=== PATIENT | male | born 1980 ===

== ENCOUNTER 2019-02-22 13:31 | Inpatient (IN) | payer MEDICAID, MEDICARE, OTHER ==
--- NOTE | 2019-02-22 15:14 | HP ---
H&P (Free Text) History and Physical: History and Physical -- Critical Care Limitations in history/physical: intubated, sedated, delirium HPI: 38y M w/pmhx of Schizophrenia (noncompliant), ?Epilepsy disorder (not on tx ), Substance abuse history (on suboxone), Recently released from [facility] >1 month back; Patient initially presented to [facility] for agitation complaints. Family brought him in saying yesterday night he was restless and itching and picking at skin lesions. He took seroquel for sleep and then xanax for sleep. This mornign he was restless and agitated, brought to [facility] and was tried on multiple medications for sedation, psychosis but no sig improvement. According to notes and sign out, he had a CT brain which was negative for an acute pathology. He demonstrated no fever or elevated WBC or source of infection acutely. he was agitated and unable to have proper assessment and care and due to ongoing need for increasing sedatives ( antipsychotics including haloperidol, ziprasidone, ativan) he was intubated for encephalopathy and protection from harming self. Urine toxicology demonstrated amphetamine+. While there there is a question of seizure activity but according to managing Physician public relations assistant, once he arrived it seemed more like agitation and coming off sedation effect that actual seizures. He reported no further seizure activity then. Given need for ventilation, sedation, encephalopathy, he was transferred to higher level of care at [facility]. He is currently intubated, sedated on propofol at 70. no distress. on IV bolus from [facility]. Not on pressors. Given rocuronium en-route to hospital due to increasing restless. ROS: limited ROS due to change in mental status, intubated, sedated status PMHx: Schizophrenia (noncompliant), ?Epilepsy disorder (not on tx), Substance abuse history (on suboxone), Recently released from [facility] >1 month back PSHx: noncontributory Family History: mental illness Social History: Alcohol-none documented, Smoking-yes, Drug use-past substance abuse; Job-yes; family-lives with mother/father Allergies: NKDA Home Medications: Suboxone, seroquel Tele: NSR Vitals: Vital Signs Temp 96.2 F 02/22/19 14:40 Pulse 68 02/22/19 15:15 Resp 16 02/22/19 15:00 BP 118/78 02/22/19 15:15 Pulse Ox 100 02/22/19 15:15 Intake & Output 02/21/19 02/22/19 02/22/19 18:59 06:59 18:59 Output Total 250 Balance -250 Output: Elizondo 250 O2/Vent: Intubated, AC 30% Infusions: Propofol; NS bolus Current Medications: Acetaminophen (Tylenol Adult Liq*) 650 mg PO Q6H PRN PRN Reason: fever or pain Enoxaparin Sodium (Lovenox(*)) 40 mg SUBCUT Q24H [facility] Famotidine (Pepcid Tab*) 20 mg PO BID [facility] Propofol (Diprivan*) 100 mls @ 0 mls/hr IV .(Initial Rate) [facility]; Protocol Dexmedetomidine HCl 1,000 mcg/ (Sodium Chloride) 250 mls @ 0 mls/hr IV .( Initial Rate) [facility] Sodium Chloride (Ns 0.9% 1000 Ml) 1,000 mls @ 100 mls/hr IV PER RATE [facility] Thiamine HCl 100 mg/ Sodium (Chloride) 51 mls @ 102 mls/hr IV Q24H [facility] Physical Exam: Constitutional: intubated, sedated, no distress, no diaphoresis Head: normocephalic, atraumatic Eyes: no pallor, no icterus ENT: moist mucous membranes Neck: soft, supple, no jvd CVS: normal rate, regular, no murmur Resp: bilateral air entry, no rhales, no wheeze, no rhonchi, no acc muscle use Abdomen/GI: soft, nondistended, BS+ Ext/Msk: warm, pulses+, no edema Skin: intact, warm Neuro: sedated, pupila reactive, cough+ Labs: pending Imaging: pending CT brain 02/22 from [facility] - no acute process noted Assessment: 38y M w/pmhx of Schizophrenia (noncompliant), ?Epilepsy disorder ( not on tx), Substance abuse history (on suboxone), Recently released from [facility] >1 month back; Patient initially presented to [facility] for agitation complaints. Family brought him in saying yesterday night he was restless and itching and picking at skin lesions. He took seroquel for sleep and then xanax for sleep. This mornign he was restless and agitated, brought to [facility] and was tried on multiple medications for sedation, psychosis but no sig improvement. According to notes and sign out, he had a CT brain which was negative for an acute pathology. He demonstrated no fever or elevated WBC or source of infection acutely. he was agitated and unable to have proper assessment and care and due to ongoing need for increasing sedatives ( antipsychotics including haloperidol, ziprasidone, ativan) he was intubated for encephalopathy and protection from harming self. Urine toxicology demonstrated amphetamine+. While there there is a question of seizure activity but according to managing Physician public relations assistant, once he arrived it seemed more like agitation and coming off sedation effect that actual seizures. He reported no further seizure activity then. Given need for ventilation, sedation, encephalopathy, he was transferred to higher level of care at [facility]. -Acute Encephalopathy and agitation -Possible Drug intoxication vs withdrawal state -substance abuse -Acute respiratory failure, unspecified; intubated for mental status and airway protection -Rhabdomyolysis Plan: Neuro- -multifactorial encephalopathy ; previous history of substance abuse and now with amphet utox+, symptoms consistent prior to admission with use of amphetamines or even a withdrawal of opiates. -r/o infectious process; noted tylenol and salicylates negative -currently on propofol , sedated; will add precedex, attempt to wean down propofol slowly -start seroquel 25mg po daILY -PRN haldol if needed, prn ativan -start thiamine 100mg IV dialy -check b12 level, ammonia -if not waking on lower sedation in next 24hours or further evidence of seizures , will obtain neuro consult and EEG -neurochecks q2h -EKG for qtc -will need psych eval once extubated for eval of schizophrenia; patient not complying with treatment? not following up? -CT brain 02/22 at [facility] no acute pathology -asp prec -Delirium prec; avoid BDZ CVS- -BP stable, HR sinus -IVF NS 100cc/hr infusion -Maintain MAP>65 Resp- -intubated for airway protection and against self-harm -CXR 02/22 - ett above cornelius 1-2 cm; no infitlrate noted -on 30% fio2, sats 99% -Wean Fio2 to keep sat>92% -Bronchodilators PRN, Aspiration prec, Pulmonary Toilet -VAP bundle ID- afebrile. wbc pending. CXR without focal process. Hold off abx, no clear infectious etiology noted currently based on [facility] labs. GI- -NPO; OGT+ -GI prophylaxis as needed Renal- -Cr okay; BMP pending -IVF NS infusion -rhabdo+; check cpk and trend; likely may be from acute agitation than seizures ? will cont IVF hydration. try to decrease propofol infusion to prevent further injury -strict I/O, replete to keep K>4, Mg>2 -elizondo as indicated Heme- pending cbc Endo- Maintain BG<200, insulin protocol as needed; check hba1c, tsh, cortisol Musculsk- pressure ulcer prophylaxis. Bedrest. Wounds- none Nutrition- NPO DVT prophylaxis: SCD, enoxaparin sq GI prophylaxis: h2b bid Central Line: no Arterial Line: no Elizondo Cathetor: yes from [facility] Disposition: Admit to ICU; Patient requires Critical Care/ICU for encephalopathy, respiratory failure Expected LOS>2 midnights Patient Clinical Status: guarded Code Status: full code Total Critical Care time is 50 minutes, excluding procedures/teaching Murray Clayton MD Pourer Off (Electronically Signed)
[2019-02-22] MEDS ORDERED: Acetaminophen ADULT LIQ* 650 MG/20.3 ML UDC PO PRN (15:17)
[2019-02-22] MEDS: Thiamine IV* 100 MG in NS 0.9% 50 ML* 50 ML IV SCH (16:06)
[2019-02-22] MEDS: NS 0.9% 1000 ML** 1,000 ML IV SCH (16:08)
[2019-02-22 16:12] LABS: ABS Basophils 0.1 10^3/ul (0-0.2); ABS Monocytes 0.5 10^3/ul (0-0.8); ABS Neutrophils 5.3 10^3/ul (1.5-7.7); Eosinophil % 0.3 %; Hematocrit 40 % (42-52); Hemoglobin 14.5 g/dL (14.0-18.0); Lymphocyte % 25.4 %; Mean Corpuscular HGB Conc 36 g/dL (31-36); Mean Corpuscular Hemoglobin 33 pg (27-31); Mean Corpuscular Volume 91 fL (80-94); Mean Platelet Volume 9.5 fL (7.4-10.4); Nucleated Red Blood Cells % 0.4; Platelet Count 184 10^3/uL (150-450); Red Blood Count 4.42 10^6 /uL (4.18-5.48); Red Cell Distribution Width 13 % (10-15); White Blood Count 7.9 10^3/uL (3.5-10.8)
[2019-02-22 16:19] LABS: INR 1.13 (0.82-1.09)
[2019-02-22 16:29] LABS: Urine Appearance Clear; Urine Bacteria Absent (Absent); Urine Bilirubin Negative (Negative); Urine Blood 1+ (Negative); Urine Color Yellow; Urine Glucose Negative (Negative); Urine Ketones 1+ (Negative); Urine Nitrite Negative (Negative); Urine Protein Negative (Negative); Urine Red Blood Cell 3+(>10/hpf) (Absent); Urine Specific Gravity 1.011 (1.010-1.030); Urine Urobilinogen Negative (Negative); Urine White Blood Cell Trace(0-5/hpf) (Absent)
[2019-02-22 16:55] LABS: TSH (Thyroid Stimulating Horm) 0.83 mcIU/mL (0.34-5.60)
[2019-02-22 16:57] LABS: ALT 44 U/L (7-52); Alkaline Phosphatase 42 U/L (34-104); Anion Gap 3 mmol/L (2-11); BUN/Creatinine Ratio 11.9 (8-20); Blood Urea Nitrogen 8 mg/dL (6-24); CO2 Carbon Dioxide 24 mmol/L (22-32); Calcium 8.1 mg/dL (8.6-10.3); Chloride 111 mmol/L (101-111); EGFR African American 160.6 (>60); EGFR Non-African American 132.8 (>60); Glucose 93 mg/dL (70-100); Sodium 138 mmol/L (135-145)
[2019-02-22 17:07] LABS: Creatine Kinase 2800 U/L (10-223)
[2019-02-22] MEDS: Dexmedetomidine* 1,000 MCG in NS 0.9% 250 ML* 240 ML IV SCH (17:09)
[2019-02-22] MEDS: Chlorhexidine MOUTHWASH 0.12%* 15 ML UDC TOPICAL SCH ×3 (17:26→23:20)
[2019-02-22 18:39] LABS: Magnesium 1.1 mg/dL (1.9-2.7)
[2019-02-22 18:41] LABS: Potassium Redraw 2.5 mmol/L (3.5-5.0)
[2019-02-22] MEDS: KCL 10 MEQ/50 ML IV SCH ×4 (20:00→23:20)
[2019-02-22] MEDS ORDERED: QUEtiapine TAB* 25 MG PO SCH (20:00)
[2019-02-22] MEDS ORDERED: Potassium Chloride* LIQUID 20 MEQ/15 ML UDC PO ONE (20:00)
[2019-02-22] MEDS: Enoxaparin(*) 40 MG/0.4 ML SYR SUBCUT SCH (20:04)
[2019-02-22] MEDS: Famotidine TAB* 20 MG PO SCH (20:04)
[2019-02-22] MEDS: Propofol* 100 ML IV SCH (21:00)
[2019-02-23] MEDS ORDERED: Magnesium Sulfate IV* 3 GM in NS 0.9% 100 ML* 100 ML IVPB ONE (01:02)
[2019-02-23 01:27] LABS: BUN/Creatinine Ratio 11.9 (8-20); Calcium 8.7 mg/dL (8.6-10.3); EGFR African American 160.6 (>60); EGFR Non-African American 132.8 (>60); Potassium 4.8 mmol/L (3.5-5.0)
[2019-02-23] MEDS ORDERED: Magnesium Sulfate 2 GM IV* 0 GM/0 ML BAG ONE (01:32)
[2019-02-23] MEDS: NS 0.9% 1000 ML** 1,000 ML IV SCH (01:42)
[2019-02-23] MEDS: Propofol* 100 ML IV SCH ×5 (03:13→20:42)
[2019-02-23 04:50] LABS: Hematocrit 38 % (42-52); Hemoglobin 13.2 g/dL (14.0-18.0); Mean Corpuscular HGB Conc 35 g/dL (31-36); Mean Corpuscular Hemoglobin 32 pg (27-31); Mean Corpuscular Volume 92 fL (80-94); Mean Platelet Volume 8.7 fL (7.4-10.4); Platelet Count 147 10^3/uL (150-450); Red Blood Count 4.13 10^6 /uL (4.18-5.48); Red Cell Distribution Width 13 % (10-15); White Blood Count 4.8 10^3/uL (3.5-10.8)
[2019-02-23 05:14] LABS: BUN/Creatinine Ratio 10.7 (8-20); Calcium 8.5 mg/dL (8.6-10.3); EGFR Non-African American 116.6 (>60); Magnesium 2.9 mg/dL (1.9-2.7); Potassium 4.2 mmol/L (3.5-5.0)
[2019-02-23] MEDS: Chlorhexidine MOUTHWASH 0.12%* 15 ML UDC TOPICAL SCH ×5 (06:32→20:28)
[2019-02-23] MEDS: Dexmedetomidine* 1,000 MCG in NS 0.9% 250 ML* 240 ML IV SCH ×2 (06:32→17:20)
[2019-02-23] MEDS: Famotidine TAB* 20 MG PO SCH ×2 (08:14→20:27)
[2019-02-23] MEDS ORDERED: Midazolam* 1 MG/ML 2 ML VIAL (2 MG) ONE (10:12)
[2019-02-23] MEDS ORDERED: Midazolam* 1 MG/ML 5 ML VIAL (5 MG) IV SLOW PU ONE (10:15)
--- NOTE | 2019-02-23 10:40 | PN ---
Progress Note - Progress Note Date of Service: 02/23/19 Note: Progress Note -- Critical Care 24 hour events -remains intubated on propofol and precedex -afebrile overnight -bradycardic after precedex started, weaned more overnight -this morning placed on sedation vacation but very agitated, restless, not opening eyes, required reinitiation of sedation and versed -family at bedside Tele: NSR; sinus krishan 2/2 to meds Vitals: Vital Signs Temp 97 F 02/23/19 07:58 Pulse 62 02/23/19 09:01 Resp 20 02/23/19 09:00 BP 132/82 02/23/19 09:01 Pulse Ox 100 02/23/19 09:01 Intake & Output 02/22/19 02/23/19 02/23/19 18:59 06:59 18:59 Intake Total 2178 Output Total 350 900 115 Balance -350 1278 -115 Weight 74.117 kg 74 kg Intake: IV Fluids 1379 NS 1379 Medicated IV 769 mag 106 potassium 221 precedex 90 propofol 302 thiamine 50 NG Tube Irrigate Amount 30 Output: Elizondo 350 900 115 O2/Vent: Intubated, AC 30% Infusions: Propofol; precedex; NS infusion Current Medications: Acetaminophen (Tylenol Adult Liq*) 650 mg PO Q6H PRN PRN Reason: fever or pain Chlorhexidine Gluconate (Peridex Mouth Wash 0.12%*) 15 ml TOPICAL Q4H [facility] Last Admin: 02/23/19 07:22 Dose: 15 ml Enoxaparin Sodium (Lovenox(*)) 40 mg SUBCUT Q24H [facility] Last Admin: 02/22/19 20:04 Dose: 40 mg Famotidine (Pepcid Tab*) 20 mg PO BID [facility] Last Admin: 02/23/19 08:14 Dose: 20 mg Propofol (Diprivan*) 100 mls @ 31.129 mls/hr IV .(Initial Rate) [facility]; Protocol Last Admin: 02/23/19 09:28 Dose: 9.4 mls/hr Dexmedetomidine HCl 1,000 mcg/ (Sodium Chloride) 250 mls @ 18.52 mls/hr IV Q13H [facility] Last Admin: 02/23/19 06:32 Dose: Not Given Thiamine HCl 100 mg/ Sodium (Chloride) 51 mls @ 102 mls/hr IV Q24H [facility] Last Admin: 02/22/19 16:06 Dose: 102 mls/hr Sodium Chloride (Ns 0.45% 1000 Ml Bag*) 1,000 mls @ 75 mls/hr IV PER RATE [facility] Quetiapine Fumarate (Seroquel Tab*) 25 mg PO DAILY@1999 [facility] Last Admin: 02/22/19 20:04 Dose: 25 mg Physical Exam: Constitutional: intubated, sedated, no distress, no diaphoresis Head: normocephalic, atraumatic Eyes: no pallor, no icterus ENT: moist mucous membranes Neck: soft, supple, no jvd CVS: normal rate, regular, no murmur Resp: bilateral air entry, no rhales, no wheeze, no rhonchi, no acc muscle use Abdomen/GI: soft, nondistended, BS+ Ext/Msk: warm, pulses+, no edema Skin: intact, warm Neuro: sedated, pupils reactive, cough+ Labs: Laboratory Results - last 24 hr 02/22/19 02/22/19 02/22/19 15:55 15:55 15:55 WBC RBC Hgb Hct MCV MCH MCHC RDW Plt Count MPV Neut % (Auto) Lymph % (Auto) [place] % (Auto) Eos % (Auto) Baso % (Auto) Absolute Neuts (auto) Absolute Lymphs (auto) Absolute Monos (auto) Absolute Eos (auto) Absolute Basos (auto) Absolute Nucleated RBC Nucleated RBC % INR (Anticoag Therapy) Sodium Potassium Chloride Carbon Dioxide Anion Gap BUN Creatinine Est GFR ( Amer) Est GFR (Non-Af Amer) BUN/Creatinine Ratio Glucose Hemoglobin A1c 5.2 Calcium Magnesium Total Bilirubin AST ALT Alkaline Phosphatase Ammonia TNP Total Creatine Kinase Troponin I Total Protein Albumin Globulin Albumin/Globulin Ratio Vitamin B12 804 TSH 0.83 Cortisol Urine Color Urine Appearance Urine pH Ur Specific [place] Urine Protein Urine Ketones Urine Blood Urine Nitrate Urine Bilirubin Urine Urobilinogen Ur Leukocyte Esterase Urine WBC (Auto) Urine RBC (Auto) Urine Bacteria Urine Glucose 02/22/19 02/22/19 02/22/19 15:55 15:55 15:55 WBC 7.9 RBC 4.42 Hgb 14.5 Hct 40 L MCV 91 MCH 33 H MCHC 36 RDW 13 Plt Count 184 MPV 9.5 Neut % (Auto) 67.4 Lymph % (Auto) 25.4 [place] % (Auto) 5.8 Eos % (Auto) 0.3 Baso % (Auto) 1.1 Absolute Neuts (auto) 5.3 Absolute Lymphs (auto) 2.0 Absolute Monos (auto) 0.5 Absolute Eos (auto) 0.0 Absolute Basos (auto) 0.1 Absolute Nucleated RBC 0.0 Nucleated RBC % 0.4 INR (Anticoag Therapy) 1.13 H Sodium 138 Potassium TNP Chloride 111 Carbon Dioxide 24 Anion Gap 3 BUN 8 Creatinine 0.67 Est GFR ( Amer) 160.6 Est GFR (Non-Af Amer) 132.8 BUN/Creatinine Ratio 11.9 Glucose 93 Hemoglobin A1c Calcium 8.1 L Magnesium TNP Total Bilirubin 0.90 AST TNP ALT 44 Alkaline Phosphatase 42 Ammonia Total Creatine Kinase 2800 H Troponin I 0.00 Total Protein 6.0 L Albumin 4.0 Globulin 2.0 Albumin/Globulin Ratio 2.0 Vitamin B12 TSH Cortisol 4.10 Urine Color Urine Appearance Urine pH Ur Specific [place] Urine Protein Urine Ketones Urine Blood Urine Nitrate Urine Bilirubin Urine Urobilinogen Ur Leukocyte Esterase Urine WBC (Auto) Urine RBC (Auto) Urine Bacteria Urine Glucose 02/22/19 02/22/19 02/23/19 16:11 18:04 00:55 WBC RBC Hgb Hct MCV MCH MCHC RDW Plt Count MPV Neut % (Auto) Lymph % (Auto) [place] % (Auto) Eos % (Auto) Baso % (Auto) Absolute Neuts (auto) Absolute Lymphs (auto) Absolute Monos (auto) Absolute Eos (auto) Absolute Basos (auto) Absolute Nucleated RBC Nucleated RBC % INR (Anticoag Therapy) Sodium 143 Potassium 2.5 L* 4.8 Chloride 119 H Carbon Dioxide 23 Anion Gap 1 L BUN 8 Creatinine 0.67 Est GFR ( Amer) 160.6 Est GFR (Non-Af Amer) 132.8 BUN/Creatinine Ratio 11.9 Glucose 107 H Hemoglobin A1c Calcium 8.7 Magnesium 1.1 L Total Bilirubin AST 41 H ALT Alkaline Phosphatase Ammonia Total Creatine Kinase Troponin I Total Protein Albumin Globulin Albumin/Globulin Ratio Vitamin B12 TSH Cortisol Urine Color Yellow Urine Appearance Clear Urine pH 6.0 Ur Specific [place] 1.011 Urine Protein Negative Urine Ketones 1+ A Urine Blood 1+ A Urine Nitrate Negative Urine Bilirubin Negative Urine Urobilinogen Negative Ur Leukocyte Esterase Negative Urine WBC (Auto) Trace(0-5/hpf) Urine RBC (Auto) 3+(>10/hpf) A Urine Bacteria Absent Urine Glucose Negative 02/23/19 02/23/19 04:36 04:36 WBC 4.8 RBC 4.13 L Hgb 13.2 L Hct 38 L MCV 92 MCH 32 H MCHC 35 RDW 13 Plt Count 147 L MPV 8.7 Neut % (Auto) Lymph % (Auto) [place] % (Auto) Eos % (Auto) Baso % (Auto) Absolute Neuts (auto) Absolute Lymphs (auto) Absolute Monos (auto) Absolute Eos (auto) Absolute Basos (auto) Absolute Nucleated RBC Nucleated RBC % INR (Anticoag Therapy) Sodium 144 Potassium 4.2 Chloride 119 H Carbon Dioxide 24 Anion Gap 1 L BUN 8 Creatinine 0.75 Est GFR ( Amer) 141.0 Est GFR (Non-Af Amer) 116.6 BUN/Creatinine Ratio 10.7 Glucose 95 Hemoglobin A1c Calcium 8.5 L Magnesium 2.9 H Total Bilirubin AST ALT Alkaline Phosphatase Ammonia Total Creatine Kinase 1143 H Troponin I Total Protein Albumin Globulin Albumin/Globulin Ratio Vitamin B12 TSH Cortisol Urine Color Urine Appearance Urine pH Ur Specific [place] Urine Protein Urine Ketones Urine Blood Urine Nitrate Urine Bilirubin Urine Urobilinogen Ur Leukocyte Esterase Urine WBC (Auto) Urine RBC (Auto) Urine Bacteria Urine Glucose Imaging: pending CT brain 02/22 from [facility] - no acute process noted cxr 02/22 - ett above cornelius, no infiltrate/congestion Assessment: 38y M w/pmhx of Schizophrenia (noncompliant), ?Epilepsy disorder ( not on tx), Substance abuse history (on suboxone), [facility]; Patient initially presented to [facility] for agitation complaints. Family brought him in saying yesterday night he was restless and itching and picking at skin lesions. He took seroquel for sleep and then xanax for sleep. This mornign he was restless and agitated, brought to [facility] and was tried on multiple medications for sedation, psychosis but no sig improvement. According to notes and sign out, he had a CT brain which was negative for an acute pathology. He demonstrated no fever or elevated WBC or source of infection acutely. he was agitated and unable to have proper assessment and care and due to ongoing need for increasing sedatives ( antipsychotics including haloperidol, ziprasidone, ativan) he was intubated for encephalopathy and protection from harming self. Urine toxicology demonstrated amphetamine+. While there there is a question of seizure activity but according to managing Physician group fitness assistant department head, once he arrived it seemed more like agitation and coming off sedation effect that actual seizures. He reported no further seizure activity then. Given need for ventilation, sedation, encephalopathy, he was transferred to higher level of care at [facility]. -Acute Encephalopathy and agitation -Possible Drug intoxication vs withdrawal state -substance abuse -Acute respiratory failure, unspecified; intubated for mental status and airway protection -Rhabdomyolysis Plan: Neuro- -multifactorial encephalopathy ; previous history of substance abuse and now with amphet utox+, symptoms consistent prior to admission with use of amphetamines or even a withdrawal of opiates. -r/o infectious process -noted tylenol and salicylates negative on utox but +amphetamines -? of progression of schizophrenia with mood disorder also? -currently on propofol, low dose precedex; on sedation vacation did not tolerated -started seroquel 25mg po daily, increase to BID today -will keep BDZ prn only as this would just increase delirium; unclear role for psych till extubated and able to assess mental status -cont thiamine 100mg IV dialy -check ammonia tomorrow -neurochecks q2h -CT brain 02/22 at [facility] no acute pathology -asp prec -Delirium prec; avoid BDZ unless indicated CVS- -BP stable; HR sinus krishan due to sedation but perfusion adequate -IVF -Maintain MAP>65 Resp- -intubated for airway protection and against self-harm -CXR 02/22 - ett above cornelius 1-2 cm; no infitlrate noted -on 30% fio2, sats 99% -Wean Fio2 to keep sat>92% -Bronchodilators PRN, Aspiration prec, Pulmonary Toilet -VAP bundle ID- afebrile. wbc normal. CXR without focal process. Hold off abx GI- -NPO; OGT+ -start TF today, jevity 1.5 @ 10cc/hr to goal of 30, reassess tomorrow -GI prophylaxis as needed Renal- -Cr okay; replete K due to 2.5 level overnight with Po and IV -Na rising and Chloride high; change NS to 1/2 NS 75cc/hr -CPK downtrending, likley from agitation -strict I/O, replete to keep K>4, Mg>2 -elizondo as indicated Heme- -hg stable -plt stable -DVT proph with SCD and chemical Endo- Maintain BG<200, insulin protocol as needed Musculsk- pressure ulcer prophylaxis. Bedrest. Wounds- none Nutrition- start TF jevity 1.5 DVT prophylaxis: SCD, enoxaparin sq GI prophylaxis: h2b bid Central Line: no Arterial Line: no Elizondo Cathetor: yes from [facility] Disposition: ICU for respiratory failure, encephalopathy Patient Clinical Status: guarded Code Status: full code Total Critical Care time is 45 minutes, excluding procedures/teaching Murray Clayton MD Accounting Intern (Electronically Signed)
[2019-02-23] MEDS: QUEtiapine TAB* 25 MG PO SCH ×2 (11:43→20:29)
[2019-02-23] MEDS: NS 0.45% 1000 ML BAG* 1,000 ML IV SCH (11:54)
[2019-02-23] MEDS ORDERED: Dexmedetomidine* 1,000 MCG in NS 0.9% 250 ML* 240 ML IV SCH (14:00)
[2019-02-23] MEDS: Thiamine IV* 100 MG in NS 0.9% 50 ML* 50 ML IV SCH (15:31)
[2019-02-23] MEDS: Enoxaparin(*) 40 MG/0.4 ML SYR SUBCUT SCH (20:27)
[2019-02-24] MEDS: Propofol* 100 ML IV SCH ×8 (00:17→20:11)
[2019-02-24] MEDS: Chlorhexidine MOUTHWASH 0.12%* 15 ML UDC TOPICAL SCH ×6 (01:02→20:38)
[2019-02-24] MEDS: NS 0.45% 1000 ML BAG* 1,000 ML IV SCH ×2 (01:05→14:39)
[2019-02-24 04:53] LABS: Hematocrit 38 % (42-52); Hemoglobin 12.8 g/dL (14.0-18.0); Mean Corpuscular HGB Conc 34 g/dL (31-36); Mean Corpuscular Hemoglobin 31 pg (27-31); Mean Corpuscular Volume 92 fL (80-94); Mean Platelet Volume 8.6 fL (7.4-10.4); Platelet Count 162 10^3/uL (150-450); Red Blood Count 4.12 10^6 /uL (4.18-5.48); Red Cell Distribution Width 13 % (10-15); White Blood Count 7.3 10^3/uL (3.5-10.8)
[2019-02-24 05:05] LABS: Calcium 8.2 mg/dL (8.6-10.3); EGFR African American 145.5 (>60); EGFR Non-African American 120.2 (>60); Magnesium 1.8 mg/dL (1.9-2.7); Potassium 3.5 mmol/L (3.5-5.0)
[2019-02-24] MEDS: QUEtiapine TAB* 25 MG PO SCH ×2 (09:38→20:38)
[2019-02-24] MEDS: Famotidine TAB* 20 MG PO SCH ×2 (09:39→20:38)
[2019-02-24] MEDS: Dexmedetomidine* 1,000 MCG in NS 0.9% 250 ML* 240 ML IV SCH ×2 (11:09→17:22)
--- NOTE | 2019-02-24 17:07 | PN ---
Date of Service: 02/24/19 Critical Care Services: remains on ventilator and is very agitated when off propofol. Vital Signs: Temp Pulse Resp BP SpO2 FiO2 98.4 F 75 18 121/72 97 25 Physical Exam: Gen: Unresponsive (on proofol) HEENT: Pupils misposition and responsive. No facial asymmetry Lungs:Clear Cardiac: reg rhtyhm. No murmurs Extremities:No cyanosis or edema. Fluid Balance (Past 24 Hours): 02/23/19 02/24/19 06:59 06:59 Intake Total 2178 2914.2 Output Total 1250 1480 Balance 928 1434.2 Weight 163 lb 2.273 oz 164 lb 0.383 oz Intake: IV Fluids 1379 1811 NS 1379 1811 Medicated IV 769 630.2 mag 106 potassium 221 precedex 90 48.2 propofol 302 532 thiamine 50 50 Tube Feeding 353 NG Tube Irrigate Amount 30 120 Output: Fritz 1250 1480 Labs: 02/24/19 02/24/19 02/24/19 04:40 04:40 04:40 WBC 7.3 RBC 4.12 L Hgb 12.8 L Hct 38 L MCV 92 MCH 31 MCHC 34 RDW 13 Plt Count 162 MPV 8.6 Sodium 144 Potassium 3.5 Chloride 117 H Carbon Dioxide 24 Anion Gap 3 BUN 8 Creatinine 0.73 Glucose 105 H Calcium 8.2 L Magnesium 1.8 L Ammonia 59 H Total Creatine Kinase 882 H Studies: EEG: No seizure activity. Nutrition: Tube feedings Impression: 1. Drug overdose (most likely amphetamines) in a patient with undelying schizophrenia. 2. Rhabdomyolysis - resolving Plan: Continue supportive care and take off propofol daily to assess mentation. Family present at bedside and aware of the current situation. Critical Care Time: 40 minutes (including time to evaluate mental status while off propofol).
[2019-02-24] MEDS: Thiamine IV* 100 MG in NS 0.9% 50 ML* 50 ML IV SCH (17:26)
[2019-02-24] MEDS: Enoxaparin(*) 40 MG/0.4 ML SYR SUBCUT SCH (20:38)
--- NOTE | 2019-02-24 22:20 | EEG ---
ELECTROENCEPHALOGRAPHY: DATE OF SERVICE: 02/24/19 - ROOM #ICU-12 DATE READ: 02/24/19 ORDERED BY: Dr. Agapito Bowen. DURATION: 10:05 to 10:51 INDICATION: Mr. Tung Hudson is a 38-year-old man with a history of polysubstance abuse, who presented with increased confusion and agitation. The patient was intubated and sedated to minimize any agitation. This EEG was obtained to evaluate for nonconvulsive status epilepticus. MEDICATIONS: 1. Precedex. 2. Pepcid. 3. Seroquel. 4. Vitamin B1. 5. Lovenox. 6. Propofol. CLINICAL STATE: Encephalopathy. REPORT: The most prominent features of this recording were polymorphic mixed faster frequency of 2-15 Hz alpha, theta, delta, and beta frequency. There were intermittent paroxysms of low voltage suppression of the background lasting 1 to 2 seconds. At the end of the recording, there was reactivity, and the patient was moving around throughout the study. Otherwise, the background lacked organization or clearly defined anterior or posterior voltage and frequency gradients. There was no discernible posterior dominant rhythm. There was emergence of some faster frequency with verbal and tactile stimulation. Hyperventilation and photic stimulation were not performed. There was no evidence of epileptiform discharges or electrographic seizures. CLINICAL IMPRESSION: This is an abnormal EEG due to the presence of diffuse, mixed frequency slowing, beta frequency, and occasional paroxysms of low voltage suppression. These findings are suggestive of a nonspecific moderate diffuse encephalopathy which can be seen in toxic metabolic disturbance, or due to medication effect. [id number]/CPS #: [id number] [facility]
[2019-02-25] MEDS: Chlorhexidine MOUTHWASH 0.12%* 15 ML UDC TOPICAL SCH ×3 (00:35→08:32)
[2019-02-25] MEDS: NS 0.45% 1000 ML BAG* 1,000 ML IV SCH ×2 (04:00→19:58)
[2019-02-25] MEDS: Propofol* 100 ML IV SCH ×2 (04:00→07:41)
[2019-02-25 04:27] LABS: Hematocrit 37 % (42-52); Hemoglobin 12.8 g/dL (14.0-18.0); Mean Corpuscular HGB Conc 34 g/dL (31-36); Mean Corpuscular Hemoglobin 31 pg (27-31); Mean Corpuscular Volume 91 fL (80-94); Platelet Count 153 10^3/uL (150-450); Red Blood Count 4.06 10^6 /uL (4.18-5.48); Red Cell Distribution Width 13 % (10-15); White Blood Count 9.4 10^3/uL (3.5-10.8)
[2019-02-25 04:42] LABS: Calcium 7.8 mg/dL (8.6-10.3); EGFR Non-African American 116.6 (>60); Magnesium 1.6 mg/dL (1.9-2.7); Potassium 3.3 mmol/L (3.5-5.0)
[2019-02-25] MEDS: QUEtiapine TAB* 25 MG PO SCH ×2 (08:32→20:27)
[2019-02-25] MEDS: Famotidine TAB* 20 MG PO SCH (08:32)
[2019-02-25] MEDS ORDERED: LORazepam INJ* 2 MG/ML 1 ML VIAL IV PUSH PRN (11:13)
[2019-02-25] MEDS ORDERED: Lorazepam PYXIS KEY PRN (11:13)
[2019-02-25] MEDS ORDERED: Potassium Chloride* LIQUID 20 MEQ/15 ML UDC PO ONE (12:26)
[2019-02-25] MEDS ORDERED: Magnesium Sulfate 2 GM IV* 2 GM/50 ML BAG IVPB ONE (12:27)
--- NOTE | 2019-02-25 14:01 | CONSULT ---
Consult Consult: Consult for Medical Decision Making Capacity S: Psychiatry is asked to evaluate capacity in this 38 y.o. single, white male with a history of epilepsy, extensive behavioral and criminal justice problems and substance abuse transferred to the [facility] ICU from [facility], where he had required intubation due to agitation, confusion and inability to protect his airway. The patient extubated himself and was immediately insisting on leaving the hospital AMA. Hospitalist attending Beronica Tidwell is concerned about his hemodynamic stability and risk for falls and further seizure, including status epilepticus, if he was to leave without further treatment. On exam the patient is accompanied in the ICU room by his mother, Isabelle Heller, stepfather Kaelb Heller and girlfriend Lauren Medina. They note that he was at his baseline until just prior to going to [facility], when he started complaining of not feeling right. According to them he had a seizure before arriving to the referring hospital. 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 I tried to have a conversation with the patient, who goes by CARLOS, but he could not have a reciprocal interaction. He seems confused and is not able to speak properly, partially from having just auto-extubated less than 2 hours prior to examination. He's not able to express his diagnostic situation or what the risks would be if he left. O: middle-aged white male who is balding; several tattoos, dressed in a patient gown with telemetry leads annealed to his chest; limited grooming, cooperative but slightly argumentative; anxious mood with a labile affect; denies SI or HI; insight and judgment poor given insistence on leaving; awake and alert; limited orientation to place time and situation A/P: Capacity: During our interaction, Mr. Hudson failed to demonstrate a reasonable understanding of his illness, the recommended treatment or the associated risks of refusing said treatment. In my judgment, he lacks the capacity to make an informed decision about staying in the hospital for continued diagnostic workup and stabilization. Capacity is subject to change in these situations and psychiatry can be re-consulted in the event of any significant changes in his presentation/situation. I have discussed my opinion with the patient, his family, unit staff and attending hosptialist, Beronica Tidwell. Thank you for the consult.
[2019-02-25] MEDS: Dexmedetomidine* 1,000 MCG in NS 0.9% 250 ML* 240 ML IV SCH (15:10)
--- NOTE | 2019-02-25 15:11 | PN ---
Subjective Date of Service: 02/25/19 Interval History: Patient seen and examined. Remains confused about his situation, security called to bedside, as patient was trying to leave AMA. He is not clear in his answers, his girlfriend is at the bedside. Objective Active Medications: Enoxaparin Sodium (Lovenox(*)) 40 mg SUBCUT Q24H [facility] Last Admin: 02/24/19 20:38 Dose: 40 mg Famotidine (Pepcid Tab*) 20 mg PO BID [facility] Last Admin: 02/25/19 08:32 Dose: 20 mg Sodium Chloride (Ns 0.45% 1000 Ml Bag*) 1,000 mls @ 75 mls/hr IV PER RATE [facility] Last Admin: 02/25/19 04:00 Dose: 75 mls/hr Dexmedetomidine HCl 1,000 mcg/ (Sodium Chloride) 250 mls @ 5.58 mls/hr IV Q24H [facility]; Protocol Last Admin: 02/24/19 17:22 Dose: 5.58 mls/hr Lorazepam (Ativan Inj*) 1 mg IV PUSH Q4H PRN PRN Reason: ANXIETY Miscellaneous (Ativan Pyxis Scruggs) 1 ea N/A .ATIVAN IV SCRUGGS PRN PRN Reason: PYXIS SCRUGGS Quetiapine Fumarate (Seroquel Tab*) 25 mg PO BID [facility] Last Admin: 02/25/19 08:32 Dose: 25 mg Vital Signs - 8 hr 02/25/19 02/25/19 02/25/19 07:30 08:00 08:30 Temperature 98.7 F Pulse Rate 57 57 57 Respiratory 17 Rate Blood Pressure 114/68 121/72 117/69 (mmHg) O2 Sat by Pulse 98 98 97 Oximetry 02/25/19 02/25/19 02/25/19 09:00 09:30 10:00 Temperature Pulse Rate 56 56 56 Respiratory 17 16 Rate Blood Pressure 116/71 119/71 113/67 (mmHg) O2 Sat by Pulse 98 97 96 Oximetry 02/25/19 02/25/19 02/25/19 10:30 11:00 11:01 Temperature Pulse Rate 73 67 68 Respiratory 24 18 Rate Blood Pressure 142/80 132/78 (mmHg) O2 Sat by Pulse 100 96 97 Oximetry 02/25/19 02/25/19 02/25/19 11:30 12:00 13:00 Temperature 97.5 F Pulse Rate 66 68 78 Respiratory 31 15 21 Rate Blood Pressure 127/77 153/99 (mmHg) O2 Sat by Pulse 99 99 99 Oximetry 02/25/19 02/25/19 02/25/19 13:51 14:00 14:27 Temperature Pulse Rate 86 67 72 Respiratory 28 16 13 Rate Blood Pressure 147/92 125/77 (mmHg) O2 Sat by Pulse 98 98 95 Oximetry 02/25/19 15:00 Temperature Pulse Rate 75 Respiratory 19 Rate Blood Pressure 140/78 (mmHg) O2 Sat by Pulse 92 Oximetry Oxygen Devices in Use Now: None Appearance: alert, NAD Eyes: No Scleral Icterus, PERRLA Neck: NL Appearance and Movements; NL JVP Respiratory: Symmetrical Chest Expansion and Respiratory Effort, Clear to Auscultation Cardiovascular: NL Sounds; No Murmurs; No JVD Extremities: No Edema Neurological: - - alert to person and place Nutrition: Taking PO's Result Diagrams: 02/25/19 04:18 02/25/19 04:18 Microbiology and Other Data: Microbiology 02/22/19 16:11 Urine Culture - Final Urine No Growth (<1,000 CFU/mL) 02/22/19 15:11 Nasal Screen MRSA (PCR) - Final Nasal Mrsa Not Detected Diagnostic Imaging: Patient Name: STEVE MUHAMMAD Medical Record#: [id number] Ordering Physician: Murray Clayton MD Acct.#: [id number] : 1980 Age: 38 Sex: M Location: [facility] Exam Date: 02/22/19 1509 ADM Status: ADM IN Order Information: CHEST AP OR PORT Accession Number: [id number] CPT: 05086 Indication: Evaluate endotracheal tube. Comparison: February 22, 2019 1027 hours Technique: Upright AP 1520 hours. Report: Endotracheal tube tip 2.8 cm above the Vicky. Nasogastric tube tip at level of the gastric cardia. Clear lungs and pleural spaces. Negative for pneumothorax. The heart, pulmonary vasculature, and mediastinal contours are unremarkable. IMPRESSION: #. Acceptable position of the endotracheal tube. #. The nasogastric tube should be advanced. Assess/Plan/Problems-Billing Assessment: This is a 38 year old male that was transferred from [facility] with reported seizures, drug ingestion and encephalopahty of unclear etiology. - Patient Problems (1) Encephalopathy acute Code(s): G93.40 - ENCEPHALOPATHY, UNSPECIFIED SNOMED Code(s): 31806349 Comment: - Mentation waxing and waning with impulsive behavior and trying to leave AMA shortly after extubation at approx 1030 am today - requested psychiatry consult for capacity - etiology unclear, drugs? schizophrenia? untreated seizures? - Repeat EEG now that patient is off sedation, pending consult withe neurology (2) Epilepsy Code(s): G40.909 - EPILEPSY, UNSP, NOT INTRACTABLE, WITHOUT STATUS EPILEPTICUS SNOMED Code(s): 99333027 Comment: - as above repeat EEG off precedex and propofol, pending neuro (3) Rhabdomyolysis Code(s): M62.82 - RHABDOMYOLYSIS SNOMED Code(s): 592108959 Comment: - in presence of possible amphetamine overdose - Continue IVF and monitor renal function (4) Schizophrenia Code(s): F20.9 - SCHIZOPHRENIA, UNSPECIFIED SNOMED Code(s): 03650765 Comment: - Appreciate recommendatiosn by psychiatry (5) Substance abuse Current Visit: Yes Status: Acute Code(s): F19.10 - OTHER PSYCHOACTIVE SUBSTANCE ABUSE, UNCOMPLICATED SNOMED Code(s): 74526806 Status and Disposition: Inpatient.
[2019-02-25] MEDS ORDERED: Morphine 4 MG/ML VIAL (1 ml) 4 MG/ML VIAL IV PRN (16:01)
[2019-02-25] MEDS: Enoxaparin(*) 40 MG/0.4 ML SYR SUBCUT SCH (20:27)
[2019-02-25] MEDS: Buprenorp/Nalox 8-2 MG SL TAB PO SCH (20:48)
[2019-02-26 04:18] LABS: Hematocrit 37 % (42-52); Hemoglobin 12.6 g/dL (14.0-18.0); Mean Corpuscular HGB Conc 34 g/dL (31-36); Mean Corpuscular Hemoglobin 31 pg (27-31); Mean Corpuscular Volume 91 fL (80-94); Mean Platelet Volume 8.4 fL (7.4-10.4); Platelet Count 153 10^3/uL (150-450); Red Blood Count 4.02 10^6 /uL (4.18-5.48); Red Cell Distribution Width 13 % (10-15); White Blood Count 7.2 10^3/uL (3.5-10.8)
[2019-02-26 04:43] LABS: BUN/Creatinine Ratio 7.4 (8-20); Calcium 8.5 mg/dL (8.6-10.3); EGFR African American 157.9 (>60); EGFR Non-African American 130.5 (>60); Magnesium 1.9 mg/dL (1.9-2.7); Potassium 3.9 mmol/L (3.5-5.0)
[2019-02-26] MEDS: Buprenorp/Nalox 8-2 MG SL TAB PO SCH ×2 (09:47→13:38)
[2019-02-26] MEDS: QUEtiapine TAB* 25 MG PO SCH ×2 (09:48→09:49)
--- NOTE | 2019-02-26 10:14 | EEG ---
ELECTROENCEPHALOGRAPHY: DATE OF SERVICE: 02/25/19 - ROOM #441 DATE READ: 02/26/19 ORDERED BY: Beronica Tidwell NP. CLINICAL PROBLEM: Mr. Hudson is a 38-year-old man who was admitted to ICU for possible seizure-like activity. This EEG was requested to evaluate for epileptiform abnormalities or electrographic seizures. CLINICAL STATE: Awake and drowsy. REPORT: The waking background had some retained organization and discernible anterior/posterior voltage and frequency gradients. There is a slow poorly sustained posterior-dominant rhythm of 8 Hz. The drowsy background consisted of diffuse, medium to high amplitude, polymorphic, 2-5 Hz theta and delta range slowing. At times, the delta slowing became sharply contoured and took on a triphasic EEG morphology. There was emergence of some fast frequency when alerted. There were rare spike in slow wave epileptiform discharges in the left temporal region, maximum at T3 and T5. These were predominantly present during drowsy state. Photic stimulation and hyperventilation were not performed. A single-electrode EKG showed a normal sinus rhythm at a rate of 75 beats per minute. CLINICAL IMPRESSION: This is an abnormal awake and drowsy EEG due to the presence of rare left temporal epileptiform discharges, diffuse slowing of the background and triphasic waves. These findings are suggestive of mild-moderate diffuse encephalopathy with superimposed increased epileptiform potentials emanating from the left temporal region. Triphasic waves are typically seen in metabolic disturbances such as hyperammonemia or hyperuremia. [id number]/[facility] #: [id number] [facility]
[2019-02-26] MEDS ORDERED: levETIRAcetam TAB* 500 MG PO ONE (10:21)
[2019-02-26 12:31] VITALS: BP 144/77
--- NOTE | 2019-02-26 13:32 | CONS ---
NEUROLOGY CONSULTATION: DATE OF CONSULT: 02/26/19 CONSULTING PROVIDER: Beronica Tidwell NP. REASON FOR CONSULT: Seizure. CHIEF COMPLAINT: Seizures. HISTORY OF PRESENT ILLNESS: Mr. Hudson is a 38-year-old right handed man who has a history of epilepsy since 5 years of age who presented to [facility] on 02/22/19 for agitation and restlessness. It was felt that the patient may have missed his antipsychotic therapy and have an acute psychosis. He was intubated for airway protection and due to encephalopathy. The urine toxicology screen showed positive for amphetamine. He was admitted to the ICU and eventually extubated on 02/25/19. Neurology was consulted to evaluate the patient's history of seizure disorder. The patient is a poor historian, but is alert and oriented enough to provide some history. He stated that he has had seizures since he was 5 years of age. He reported taking Depakote and phenobarbital at some point. He was incarcerated for the past 2 years and was released in August 2018. During his incarceration, the patient was taking the seizure medication, but he does not recall the name. Since he was released he has not taken any medications for seizures. He reports having multiple seizures at least 2 to 3 times a year. He had 1 seizure during the 2 years that he was incarcerated. He is unable to describe the seizures. Family is not at bedside. The patient does report losing consciousness and initially waking up at the hospital. The patient denied any recent history of psychosis. He denied any history of headaches, visual disturbance, weakness or numbness. He is requesting to go home. The patient was started on Suboxone and Seroquel during this hospitalization. He was evaluated by Psychiatry, Dr. Matias, who saw that the patient did not have the capacity to make any clinical or medical decisions. Seizure risk factors: The patient denied any history of meningitis or encephalitis. He denies any head injury. He has no family history of epilepsy. He denied any history of febrile seizures. He has no history of brain or spinal cord surgeries. He was born as full term, normal vaginal delivery without any complications. The patient has not had any intracranial imaging since the hospitalization. He had an EEG that showed diffuse slowing with increased rare epileptogenic potentials in the left temporal region. These findings are consistent with encephalopathy and possible lowering of seizure threshold for seizures. The patient had a CT head without contrast at [place], which was reported to show no acute pathology. I did not review these with extra images or the results and this was dictated according to the provider's note. PAST MEDICAL HISTORY: Schizophrenia, epilepsy, and substance abuse. HOME MEDICATIONS: Reported Suboxone and Seroquel. ALLERGIES: No known drug allergies. FAMILY HISTORY: No family history of stroke or seizures. He does have a family history of mental illness. SOCIAL HISTORY: He denied any alcohol use. He does smoke tobacco and marijuana. He is employed at a factory. REVIEW OF SYSTEMS: A 14-point review of systems was obtained and otherwise negative except for what is mentioned in the HPI. PHYSICAL EXAM: Vitals: Temperature of 98.4, heart rate of 73, respiratory rate of 17, oxygen saturation is 99% on room air, and blood pressure 133/89. General: Ill-appearing, disheveled man in no acute distress. Head: Normocephalic and atraumatic. Eyes: Conjunctivae/corneas are clear. Neck is supple and symmetrical with no carotid bruits. No lymphadenopathy. Lungs are clear to auscultation bilaterally. Cardiovascular: Regular rate and rhythm with normal S1 and S2. Extremities: Normal range of motion with no cyanosis. Skin: No skin lesions or lacerations. Psych: Affect is broad and normal mood. Neurological Examination: Mental status awake, alert, and oriented to person, place, time, and general circumstances. He does have psychomotor slowing with some slow and hoarse speech due to recent intubation. Cranial nerves: Normal confrontation testing bilaterally. Pupils midrange and reactive to light. Normal concentric response. Extraocular muscles are intact. Sensation is intact in the forehead, cheeks, and jaw region bilaterally. There is no facial droop. He has normal facial symmetry. He is able to hear throughout the history process. Symmetrical palatal elevation. Normal strength against resistance. Tongue is symmetric and midline with no atrophy or fasciculation. Motor examination: No abnormal movements or pronator drift. He has got normal bulk and tone throughout. No fasciculation. He has got 5/5 strength in the upper and lower extremities bilaterally. Reflexes right/left: Brachioradialis 1/1, biceps 1/1, triceps 2/2, patella 3/3, ankle 2/2, plantar flexor/flexor. Sensation is intact to light touch throughout. Coordination normal finger-to- nose and rapid alternating movement. Gait and station, he has got wide based gait, required 1 person assist. He is unsteady when ambulating. DIAGNOSTIC STUDIES/LAB DATA: WBC 7.2, hemoglobin 12.6, hematocrit of 37, platelet count of 153. Sodium of 143, potassium 3.9, chloride of 109. Carbon dioxide 31, BUN of 5, creatinine is 0.68, magnesium of 1.9, ammonia 59. Total CK was 2800 on admission and it went down to 882. Urinalysis shows no evidence of pyuria. ASSESSMENT AND RECOMMENDATION: Mr. Tung Hudson is a 38-year-old man with known history of epilepsy since childhood who has a history of polysubstance abuse who presented to [facility] as a transfer from [place] on for symptoms of agitation and restlessness. The patient was intubated due to the concern of toxic encephalopathy. He was eventually extubated on . Neurology was involved to evaluate the patient's seizure history. It is unclear if the patient's presentation was related to seizures with postictal confusion. Other differential diagnosis would be toxic encephalopathy given the positive urine toxicology screen for amphetamine at the outside hospital. Other differential diagnosis including acute psychosis in the setting of poor anti-psychotic medication compliance. The patient is not able to make medical decisions due to lack of capacity according psychiatry. This may have been following his postextubation as I think this will change once the patient is treated for his seizures and once he recovers from his encephalopathy. He appeared alert and appropriate this morning up on my evaluation. 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 Also continue levetiracetam 500 mg p.o. twice daily. Please note that I specifically discussed the side effects of levetiracetam which include, but are not limited to: irritability, agitation, and worsening psychosis. If the patient experiences any of these symptoms, he should come back to the emergency room immediately so we can discontinue the levetiracetam and start him on a different antiepileptic agent. Another seizure medications that can be considered would be carbamazepine, lamotrigine, and zonisamide. I do not recommend using Depakote given that he has hyperammonemia at baseline. Please consult physical therapy to evaluate and treat. If the patient develops any acute headache or neurological deficits, please obtain the CT head without contrast. We discussed seizure precautions. The patient was instructed not to operate any heavy machinery, swim or bathe unattended, or climb rooftops or ladders. The patient should not be driving or operating a vehicle. The patient verbalized understanding. Please reconsult Psychiatry as I suspect the patient is slowly recovering and will have hopeful capacity to participate in his own medical decision making. Neuro checks every 4 hours. Follow up with [facility] Neurology in 4 weeks. We will arrange an appointment. Discussed these recommendations with Beronica Tidwell. [id number]/[facility] #: [id number] [facility]
[2019-02-26] MEDS ORDERED: levETIRAcetam TAB* 500 MG PO SCH (21:00)
--- NOTE | 2019-02-26 22:34 | DS ---
CC: Dr. Apolonia Escalera at [facility]; Dr. Samuel Matias; Dr. Benson * DISCHARGE SUMMARY: DATE OF ADMISSION: 02/22/19 DATE OF DISCHARGE: 02/26/19 PRIMARY CARE PROVIDER: Will be [facility] Medical. MY ATTENDING FOR TODAY: Dr. Naga Sewell.* (DICTATED BY GABE CARMICHAEL NP) PSYCHIATRIST: Dr. Samuel Matias. HOSPITAL COURSE: Please refer to admitting H and P on 02/22/19, but in short, Mr. Hudson is a 38-year-old male patient with complex psychiatric and substance abuse history. The patient has history of schizophrenia and noncompliance with medications approximately since age 15. He also has history of polysubstance abuse. The patient was recently incarcerated and released from alf approximately 5 months ago. He had been living with his parents for the last 5 months. It is questionable as this patient was a direct transfer from [place] as to the activities leading up to the events of his hospitalization there, but per his family the patient was having seizure activity at home. They brought him to [place] to seek assistance for his seizure activity and some confused behavior which may have been some postictal behavioral. Apparently when he was at [facility], he became more agitated and confused and for safety sake, he had been given quite a bit of medication for some behavioral disturbance and at some point required sedation and intubation. At that time then, the patient was transferred to [facility] for additional care in ICU. The patient at that point was on a Precedex drip and propofol. He self-extubated when his sedation was lifted on the 02/25/19. The patient was still apparently very confused at that time and quite encephalopathic. He was seen by Psychiatry for question of capacity because the patient was trying to leave against medical advice. The family was at bedside and also conveyed a similar story that the patient did have some periods of agitation, behavioral disturbance, history of schizophrenia, possibility of epilepsy in the past; however, the family did also endorse that the patient had been doing well at home and they did not feel that this was drug induced. It is our understanding that the patient did admit to obtaining some street substances because he had been off of his Suboxone. His tox screen was positive for amphetamines. The tox screen was obtained at [facility] , so there is some question as how much street medication the patient had been ingesting prior to these events when he was at [facility]. In any case, the patient was evaluated for his potential seizure disorder. The first EEG was performed while the patient was still sedated with propofol and Precedex. At that time, there were some abnormalities; however, after the patient was extubated, an EEG was repeated, and Dr. Benson read the EEG and apparently there were some additional abnormalities representing some possible epileptiform changes. Dr. Benson did recommend that the patient be loaded with Keppra which he was on the day of discharge. He received a [address] Benson recommended that the patient be placed on Keppra [address] Matias when he initially saw the patient was immediately after extubation and he was quite confused. My conversation with the patient on the day of discharge, he seemed much more focused and understanding of his hospitalization and events subsequent to his extubation. The family is very involved with his case and the patient was medically stabilized and discharged on the . The patient was placed on Suboxone while he was hospitalized. We did have a conversation about him continuing Suboxone as an outpatient. Because of the patient having some limited resources and some insurance issues, we did set him up with an appointment with [facility] for tomorrow to continue offering him Suboxone. He is agreeable to this plan and his mother in particular is willing to help him, continue to follow through on his insurance difficulties to ensure that he does continue his Medicaid coverage to be able to continue the medications as prescribed during this hospitalization and ensure the patient's stability at discharge. REVIEW OF SYSTEMS: On the day of discharge, the patient denies any fever, fatigue, or chills. No headaches. No shortness of breath. He does endorse some sore throat and cough, but no dysphagia. No nausea, no vomiting. No urinary complaints. No bowel complaints. He does have some general weakness, but no further arthralgias or myalgias or other constitutional complaints. PHYSICAL EXAM: Reveals a somewhat frail appearing middle-aged gentleman in no acute distress. His vital signs are blood pressure 144/77, heart rate is 68, respiratory rate 19, O2 saturation 99% on room air with a temperature of 98.6. HEENT: The patient is atraumatic, normocephalic. PERRLA. Anicteric sclerae. Extraocular movements are intact. No nystagmus noted. Oral mucosa is moist. Tongue is midline. Neck is supple and nontender. No JVD noted. No thyromegaly appreciated. Cardiovascular: S1, S2 present. No murmurs, gallops , or rubs noted. Rate and rhythm are regular. Lungs are clear bilaterally to auscultation with no wheezing, or rhonchi, rales. Abdomen is soft, nontender, and nondistended. Positive bowel sounds in all 4 quadrants. was deferred. Musculoskeletal: There is no clubbing, no cyanosis, no edema. He has +2 distal pulses palpable. Full range of motion. Gross motor and sensation are intact. He has steady gait with some and assistance. He is using a walker for stability. Skin is warm, somewhat dry and excoriated around the face, but otherwise intact with no wounds or sclerosis noted. Neurologic: He is impulsive, but otherwise alert and oriented with no focal deficits noted. Psychiatric: Again, impulsive, prone to some agitated behavior at times, but can be quickly redirected and is otherwise appropriate. DIAGNOSTIC STUDIES/LAB DATA: WBC 7.2, RBC is 4.02, hemoglobin 12.6, hematocrit 37, platelets 153. Sodium 143, potassium 3.9, chloride 109. BUN 5, creatinine 0.68, GFR 130.5. Glucose 86. Hemoglobin A1c is 5.2, magnesium 1.9, total bilirubin 0.90. AST 41, ALT 44, alk phos 42. Creatinine kinase at admission was 2800. Troponin was negative at 0.00. Total protein 6.0, albumin 4.0, globulin 2.0, albumin-globulin ratio 2.0. Vitamin B12 of 804. TSH is 0.83 and cortisol is 4.10. Urinalysis was negative for any acute infective process. INR is 1.13. Chest x-ray on 02/22/19 shows clear lungs and pleural spaces. Negative for pneumothorax. Heart, pulmonary vasculature, and mediastinal contours were unremarkable. Endotracheal tube was in appropriate and acceptable position at that time. DISCHARGE DIAGNOSES: 1. Acute encephalopathy, etiology seizure versus amphetamine ingestion. 2. Epilepsy. 3. Acute rhabdomyolysis. 4. History of schizophrenia. 5. History of polysubstance abuse. DISCHARGE MEDICATIONS: Include: 1. Keppra 500 mg 1 tablet p.o. b.i.d. 2. Seroquel 25 mg 1 tablet p.o. b.i.d. 3. Suboxone 8/2 mg 1 film p.o. b.i.d. FOLLOWUPS: The patient was instructed to follow up with [facility]. He has an appointment on 02/27/[address] Mari Guerra, Dr. Amrit Benson of Neurology in 1 month, [facility] in 4 to 7 days, [facility] was also made as a referral. DIET: Regular diet as tolerated. ACTIVITY: Progressive activity as tolerated. DISPOSITION: The patient was discharged to home in the care of his parents in stable condition. All questions were answered to the patient and his mother, stated their understanding of discharge instructions, medications and followups. Also of note, the patient's mother was given information for Medicaid followup to ensure that the patient's Medicaid can be continued. Social work and nursing staff had given her resources for this. TIME SPENT: Approximately 45 minutes on discharge planning and medications and followups. GABE CARMICHAEL NP [id number]/[facility] #: [id number] CHITO
== END 2019-02-26 14:18 | disposition home or self-care (01) | DRG 917 ==
LOC: ICU 14:37 → MEDTELE 02-25 14:57
PROVIDERS: ADMIT Internal Medicine Critical Care Medicine; ATTEND Internal Medicine
PROC: 5A1945Z Respiratory Ventilation, 24-96 Consecutive Hours (ICD-10-PCS; principal; 2019-02-22)
PROC: 4A00X4Z Measurement of Central Nervous Electrical Activity, External Approach (ICD-10-PCS; 2019-02-24)
PROC: 4A00X4Z Measurement of Central Nervous Electrical Activity, External Approach (ICD-10-PCS; 2019-02-25)
DX: T43.621A Poisoning by amphetamines, accidental (unintentional), initial encounter (principal); J96.00 Acute respiratory failure, unspecified whether with hypoxia or hypercapnia; G92 Toxic encephalopathy; M62.82 Rhabdomyolysis; F20.9 Schizophrenia, unspecified; G40.909 Epilepsy, unspecified, not intractable, without status epilepticus; R00.1 Bradycardia, unspecified; E87.6 Hypokalemia; F19.10 Other psychoactive substance abuse, uncomplicated; Z91.14 Patient's other noncompliance with medication regimen; Z81.8 Family history of other mental and behavioral disorders; Z72.0 Tobacco use; Y92.9 Unspecified place or not applicable
CPT/HCPCS: 36415; 71045; 80048; 80053; 81003; 81015; 82140; 82533; 82550; 82607; 83036; 83735; 84443; 84484; 85025; 85027; 85610; 87086; 87641; 93005; 94002; 94003; 95816; 95822; A9270-GY; J1650; J2060; J2250; J2704; J3411; J3475; J3480